=== PATIENT | female | born 1980 | race Caucasian/White ===

== ENCOUNTER 2019-11-10 11:58 | Outpatient (CLI) | payer BC, SELFPAY ==
--- NOTE | ~2019-11-10 | US_ITS ---
EXAMINATION: US right upper quadrant DATE: 11/10/2019 12:40 INDICATION: Right upper quadrant abdominal pain radiating to the back. TECHNIQUE: Multiple grayscale and Doppler ultrasound images of the abdomen were obtained. COMPARISON: None FINDINGS: The visualized portions of the head, body, and tail of the pancreas are normal. There is di ffuse hepatic steatosis. There is normal flow in main portal vein. The gallbladder is normal in size and contains gallstones. No gallbladder wall thickening or sonographic Daniels sign. The common duct i s normal and measures 6 mm. IMPRESSION: 1. Cholelithiasis. No evidence of acute cholecystitis. 2. Diffuse hepatic steatosis. Reviewed, dictated and finalized at location E.
== END 2019-11-10 11:59 | disposition home or self-care (01) ==
LOC: ANHIMG 12:10
PROVIDERS: PCP Internal Medicine; Visit Provider Internal Medicine
DX: R10.13 Epigastric pain (principal); K80.20 Calculus of gallbladder without cholecystitis without obstruction; K76.0 Fatty (change of) liver, not elsewhere classified
CPT/HCPCS: 76705

== ENCOUNTER 2020-08-10 09:41 | Outpatient (CLI) | payer BC, SELFPAY ==
[2020-08-10 19:04] LABS: Hematocrit 42.7 % (37.0-47.0); Hemoglobin 13.7 g/dL (12.0-15.0); Mean Corpuscular HGB Conc 32.1 g/dl (32-36); Mean Corpuscular Hemoglobin 27.1 pg (26-34); Mean Corpuscular Volume 84.6 fl (80-100); Mean Platelet Volume 10.7 fl (7.4-10.4); Platelet Count Result 251 k/mm3 (150-375); Red Blood Count 5.05 M/mm3 (4.2-5.4); Red Cell Distribution Width 14.6 % (11.5-14.5); White Blood Count 8.6 K/mm3 (4.5-10.0)
[2020-08-10 20:10] LABS: Thyroid Stimulating Hormone Reflex 0.951 uIU/mL (0.465-4.68)
== END 2020-08-10 09:42 | disposition home or self-care (01) ==
PROVIDERS: PCP Internal Medicine; Visit Provider Obstetrics & Gynecology
DX: N92.1 Excessive and frequent menstruation with irregular cycle (principal)
CPT/HCPCS: 36415; 84443; 85027

== ENCOUNTER → 2020-09-03 04:57 | Outpatient (CLI) | payer BC, SELFPAY ==
[2020-09-03 19:22] LABS: SARS-CoV-2 RNA PCR Negative
== END ==
PROVIDERS: PCP Internal Medicine; Visit Provider Obstetrics & Gynecology
DX: Z01.812 Encounter for preprocedural laboratory examination (principal); Z20.822 Contact with and (suspected) exposure to COVID-19
CPT/HCPCS: C9803; U0003; U0005

== ENCOUNTER 2020-09-06 00:58 | Day surgery (SDC) | payer BC, SELFPAY ==
[2020-08-25 14:07] VITALS: BMI 41.1
[2020-09-06] VITALS (7 sets, daily range): BP systolic 122–134; BP diastolic 71–93; PULSE 70–92; RESP 14–17; TEMP 36.6–37.4; O2SAT 94–98
--- NOTE | 2020-09-06 08:40 | PM.IMHP ---
H&P: HPI History of Present Illness Date/Time: 09/06/20 08:40 39 y/o aith periods usually monthly lasting 7-9 days but recently had bleeding that lasted an entire month. No improvement with Lysteda Chief Complaint: Menometrorrhagia Review of Systems Review of Systems: All systems reviewed & are unremarkable except as noted in HPI and below PMFSH Past Medical History Medical History HSV (herpes simplex virus) infection Surgical History Surgical History History of cholecystectomy 11/2019 Previous section 09/19/10, c/s, full term, female, 8#14 11/15/11, c/s, full term, female, 7#2 11/22/15, c/s, full term, female, 9#10 Family History Family History Mother Breast cancer Carcinoma of colon Father Acute myocardial infarction Social History Social History Smoking status: Never smoker Alcohol intake: current Drinks per week: 1 Substance use: current Substance use type: marijuana Other substance usage details: GUMMIES - ONCE EVERY 6 WKS Living arrangements: with family Spiritual care concerns: No Meds Home Medications and Allergies Home Medications Medication Instructions Recorded Confirmed Type loratadine-pseudoephedrine 1 tablet PO DAILY PRN 08/25/20 08/25/20 History [Claritin-D 24 Hour] Allergies Allergy/AdvReac Type Severity Reaction Status Date / Time No Known Allergies Allergy Verified 08/25/20 14:05 Exam Const: General: healthy appearing, no acute distress, well developed, alert and awake Resp: Auscultation: clear to auscultation bilaterally Cardio: Rate: regular rate Rhythm: regular rhythm GI: Inspection: non-distended GI Palp: Yes Soft to palpation and No Tenderness to palpation present (GI) : Bimanual exam- vagina & uterus: normal bimanual exam, uterine size normal, uterine mobility normal, non-tender and soft Bimanual Exam- Adnexa, other: normal adnexae, no masses and No adnexal tenderness Extrem: General: no pedal edema and no calf tenderness Psych: Mental Status: mental status grossly normal Assessment and Plan Assessment and plan (1) Menometrorrhagia: Code(s): N92.1 - Excessive and frequent menstruation with irregular cycle Status: Acute Assessment and Plan: Heavy and irregular bleeding not responsive to Lysteda. She opted and signed consent for D&C, hysteroscopy, and endometrial ablation after risks, benefits, complications, and alternatives discussed. Contraception: s/p vasectomy
[2020-09-06] MEDS: ACETAMINOPHEN 500 MG TABLET 1000 MG PO (11:30)
[2020-09-06] MEDS: LACTATED RINGERS 1,000 ML 30 ML IV CONT ×2 (11:48→14:00)
--- NOTE | 2020-09-06 11:58 | WPDHPUPDATE1 ---
History and Physical Update Update Date/Time: 09/06/20 11:58 History and Physical has been reviewed, including an updated exam of the patient. There are NO changes in the patient's condition. Risks, benefits, and alternatives have been discussed and questions answered. Patient agrees to proceed with procedure.
--- NOTE | 2020-09-06 12:22 | WPDANESEPPF ---
Anes - Initial Pre Proc Eval Procedure: Operation Date: 09/06/20 13:00 Proposed Procedures p Hysteroscopy Dilation and Curettage With Eugenia Ablation - Brooklyn Smallwood MD Date/Time: 09/06/20 12:22 Surgeon: Brooklyn Smallwood MD Pre Op Diagnosis: menometrorrhagia Patient Data Age: 39 Gender: F Height: 5 ft 4 in Weight: 108 kg Last Vital Signs Temp 37.4 C 09/06/20 11:25 Pulse 92 09/06/20 11:25 Resp 16 09/06/20 11:25 BP 134/89 09/06/20 11:25 Pulse Ox 98 09/06/20 11:25 Allergies Allergy/AdvReac Type Severity Reaction Status Date / Time No Known Allergies Allergy Verified 09/06/20 11:26 Home Medications Medication Instructions Recorded Confirmed Type loratadine-pseudoephedrine 1 tablet PO DAILY PRN 08/25/20 09/06/20 History [Claritin-D 24 Hour] fluticasone propionate [Flonase] 1 spray INTRANASAL PRN 09/06/20 09/06/20 History Patient hx anesthesia problems: none Family hx anesthesia problems: none PMFSH Past Medical History Medical History Anxiety HSV (herpes simplex virus) infection Hx of migraines Surgical History Surgical History History of cholecystectomy 11/2019 Previous section 09/19/10, c/s, full term, female, 8#14 11/15/11, c/s, full term, female, 7#2 11/22/15, c/s, full term, female, 9#10 Family History Family History Mother Breast cancer Carcinoma of colon Father Acute myocardial infarction Social History Social History Smoking status: Never smoker Alcohol intake: current Drinks per week: 1 Substance use: current Substance use type: marijuana Other substance usage details: GUMMIES - ONCE EVERY 6 WKS Living arrangements: with family Spiritual care concerns: No Anes - Eval Final PreProcedure Day of Procedure 09/06/20 12:22 Patient weight: morbidly obese Heart: regular rate and rhythm Lungs: clear to auscultation Airway: Mallampati scale class II Neurological: alert and oriented Last oral intake: >/= 8 hours ASA classification: III Emergent: no Anesthetic plan: proceed Anesthesia type and monitoring: general GIVS and standard monitoring Informed Consent: The patient's anesthetic plan and its attendant risks and benefits were discussed with the patient/family/POA. Questions were solicited and answers provided to the satisfaction of the patient/family/POA.
--- NOTE | 2020-09-06 12:53 | PM.PROC ---
Procedure Note - Detailed Date of procedure: 09/06/20 Pre-op diagnosis: menometrorrhagia Post-op diagnosis: same Procedure performed: D&C, hysteroscopy, Eugenia endometrial ablation Description of procedure: She was taken to the operating room where general anesthesia was obtained. She was prepared and draped in the normal sterile fashion in the dorsal lithotomy position. Speculum was placed in the vagina. The anterior lip of the cervix was grasped with a single-tooth tenaculum. The uterus sounded to 9.5 cm. The cervix was dilated to allow passage of the hysteroscope, which revealed normal intrauterine anatomy. A sharp curettage was performed and the curettings sent for pathologic evaluation. A 8. Hegar dilator was used to measure the endocervical canal at 4 cm, yielding entire cavity length of 5.5 cm. The minor device was introduced. The cavity assessment passed on the 1st attempt. The cycle ran for 2 minutes. The monopolar device was removed. A 2nd look was taken with the hysteroscope, which revealed an excellent appearing ablation. The hysteroscope was removed. The tenaculum was removed from the cervix. The left tenaculum site was bleeding. Pressure was held with ring forceps until excellent hemostasis was assured. All instruments were removed from vagina. She tolerated the procedure well. Sponge, lap, and instrument counts were correct x2. She was taken to the recovery room in stable condition. Anesthesia: MAC Surgeon: Brooklyn Smallwood MD Estimated blood loss (mL): 20 Drains: No Packing: No Pathology: yes (endometrial curettings) Complications: No immediate complications Condition: stable Disposition: PACU Findings: Normal endometrial cavity, excellent appearing ablation
[2020-09-06] MEDS: KETOROLAC 30 MG/ML VIAL (*BKC) IV PUSH (13:08)
== END 2020-09-06 15:33 | disposition home or self-care (01) ==
PROVIDERS: PCP Internal Medicine; Visit Provider Obstetrics & Gynecology
PROC: 0U5B8ZZ Destruction of Endometrium, Via Natural or Artificial Opening Endoscopic (ICD-10-PCS; CPT 58563; principal; 2020-09-06 13:00)
DX: N92.1 Excessive and frequent menstruation with irregular cycle (principal); F41.9 Anxiety disorder, unspecified; B00.9 Herpesviral infection, unspecified; F12.90 Cannabis use, unspecified, uncomplicated; E66.01 Morbid (severe) obesity due to excess calories; Z68.41 Body mass index [BMI] 40.0-44.9, adult
CPT/HCPCS: 58563; 88305; A9270; J1885; J2250; J2405; J2704; J3010; J7030; J7120